=== PATIENT | male | born 1965 | race Caucasian/White ===

== ENCOUNTER 2024-08-04 07:53 | Emergency (ER) | payer OTHER ==
[2024-08-04] MEDS ORDERED: HYDROCODONE/APAP 5/325 MG TAB ONE (08:42)
--- NOTE | 2024-08-04 09:03 | RAD REPORT ---
Exam:Shoulder Right 2+ Views History: Right shoulder pain Findings: No fracture or dislocation seen Osteoporosis. Moderate osteoarthritis AC joint.
--- NOTE | 2024-08-04 10:03 | EDPHYS ---
Physician Documentation [facility] Name: Noman Huitron Age: 58 yrs Sex: Male : 1965 Arrival Date: 08/04/2024 Time: 07:53 Bed 11 Private MD: ED Physician Rudolph Thacker HPI: 08/04 10:17 This 58 yrs old Male presents to ER via Ambulatory with complaints of Shoulder Injury - ms3 right. 10:17 .Noman Huitron, a 58-year-old male, presents to the emergency department with ms3 right shoulder pain. He reports that the pain began after an incident while playing pickleball. Patient rates his discomfort a 9/10 states the pain is worse with movement. Patient describes the pain as being dull. He denies any alleviating factors. Historical: - Allergies: 08:00 No Known Allergies; ll1 - PMHx: 08:00 Diabetes mellitus; Hypertensive disorder; Hypercholesterolemia; ll1 - PSHx: 08:00 prostate surgery; ll1 - Immunization history:: Adult Immunizations up to date. - Infectious Disease History:: Denies. - Social history:: Smoking status: Patient denies any tobacco usage or history of. ROS: 10:17 Constitutional: Negative for fever, and chills. Cardiovascular: Negative for chest ms3 pain, and palpitations. Respiratory: Negative for shortness of breath, cough, wheezing, and pleuritic chest pain, Abdomen/GI: Negative for abdominal pain, nausea, vomiting, diarrhea, and constipation, 10:17 MS/extremity: Positive for pain, of the right shoulder, Exam: 10:17 Constitutional: This is a well developed, well nourished patient who is awake, alert, ms3 and in no acute distress. Cardiovascular: Regular rate and rhythm with a normal S1 and S2. No gallops, murmurs, or rubs. Normal PMI, no JVD. No pulse deficits. Respiratory: Lungs have equal breath sounds bilaterally, clear to auscultation and percussion. No rales, rhonchi or wheezes noted. No increased work of breathing, no retractions or nasal flaring. Abdomen/GI: Soft, non-tender, with normal bowel sounds. No distension or tympany. No guarding or rebound. No evidence of tenderness throughout. Skin: Warm, dry with normal turgor. Normal color with no rashes, no lesions, and no evidence of cellulitis. 10:17 Musculoskeletal/extremity: Extremities: noted in the right shoulder: pain, tenderness, ROM: limited active range of motion, right shoulder, Vital Signs: 08:08 BP 146 / 80; Pulse 53; Resp 17; Temp 98; Pulse Ox 100% ; Weight 77.11 kg; Height 5 ft. ll1 7 in. ; Pain 9/10; 10:19 Pain 5/10; jl7 08:08 Body Mass Index 26.63 (77.11 kg, 170.18 cm) ll1 08:08 Pain Scale: Adult ll1 10:19 Pain Scale: Adult jl7 MDM: 08:06 Medical Screening Exam initiated ms3 10:17 Differential diagnosis: Dislocation vs Strain/Sprain vs Fracture. Data reviewed: vital ms3 signs, nurses notes, radiologic studies, and as a result, I will discharge patient. I considered the following discharge prescriptions or medication management in the emergency department Medications were administered in the Emergency Department. See MAR. Counseling: I had a detailed discussion with the patient and/or guardian regarding the historical points, exam findings, and any diagnostic results supporting the discharge/admit diagnosis, the need for outpatient follow up, to return to the emergency department if symptoms worsen or persist or if there are any questions or concerns that arise at home. Special discussion: I discussed with the patient/guardian in detail that at this point there is no indication for admission to the hospital. It is understood, however, that if the symptoms persist or worsen the patient needs to return immediately for re-evaluation. ED course: Discussed radiology read showing moderate osteoarthritis of right shoulder with patient and his . Patient to follow-up with Dr. Fletcher in 2 to 3 days. Patient understands agrees with plan. All questions were answered. Return precautions discussed include worsening symptoms, or any other concerns. 08/04 08:07 Order name: Shoulder Right (2 View) XRAY; Complete Time: 09:06 ms3 Administered Medications: 08:40 Drug: HYDROcodone-acetaminophen PO 5 mg-325 mg 1 tabs PO once {Note: RASS 0, pain ll1 9/10.} Route: PO; 10:19 Follow up: Response: No adverse reaction; Pain is decreased jl7 Disposition Summary: 08/04/24 10:02 Discharge Ordered Notes: Location: Home ms3 Condition: Stable ms3 Diagnosis - Pain in right shoulder ms3 Followup: ms3 - With: Mitchell Fletcher MD - When: 2 - 3 days - Reason: Recheck today's complaints Discharge Instructions: - Discharge Summary Sheet ms3 - Shoulder Pain ms3 Forms: - Medication Reconciliation Form ms3 - Antibiotic Education ms3 - Prescription Opioid Use ms3 - Patient Portal Instructions ms3 - Leadership Thank You Letter ms3 Signatures: Dispatcher [employer] Karthikeyan Casanova RN RN ll1 Rudolph Thacker DO DO ms3 Nelson Solano RN jl7 Corrections: (The following items were deleted from the chart) 08:07 08:00 Allergies: No Known Allergies; ll1 ll1 : 08:00 PMHx: None; ll1 ll1 08: 08:00 PMHx: Headache; ll1 ll1 08: 08:00 PSHx: prostate; ll1 ll1
--- NOTE | 2024-08-04 10:03 | ER ---
Nurse's Notes [facility] Name: Noman Huitron Age: 58 yrs Sex: Male : 1965 Arrival Date: 08/04/2024 Time: 07:53 Bed 11 Private MD: Diagnosis: Pain in right shoulder Presentation: 08/04 08:08 Chief complaint: Patient states: Fell onto R shoulder yesterday playing pickle ball. ll1 Limited ROM and significant pain today. Coronavirus screen: Client denies travel out of the [place] in the last 14 days. At this time, the client does not indicate any symptoms associated with coronavirus-19. Ebola Screen: Patient denies travel to an Ebola-affected area in the 21 days before illness onset. Initial Sepsis Screen: Does the patient meet any 2 criteria? No. Patient's initial sepsis screen is negative. Does the patient have a suspected source of infection? No. Patient's initial sepsis screen is negative. Risk Assessment: Do you want to hurt yourself or someone else? Patient reports no desire to harm self or others. Onset of symptoms was August 03, 2024. 08:08 Method Of Arrival: Ambulatory ll1 08:08 Acuity: SRAVANI 3 ll1 Triage Assessment: 08:09 General: Appears uncomfortable, Behavior is calm, cooperative, appropriate for age. ll1 Pain: Complains of pain in R shoulder Pain currently is 9 out of 10 on a pain scale. Quality of pain is described as aching, Aggravated by increased activity. Musculoskeletal: Reports pain in R shoulder. Injury Description: fall onto R shoulder. Historical: - Allergies: 08:00 No Known Allergies; ll1 - PMHx: 08:00 Diabetes mellitus; Hypertensive disorder; Hypercholesterolemia; ll1 - PSHx: 08:00 prostate surgery; ll1 - Immunization history:: Adult Immunizations up to date. - Infectious Disease History:: Denies. - Social history:: Smoking status: Patient denies any tobacco usage or history of. Screenin:19 [facility] ED Fall Risk Assessment (Adult) History of falling in the last 3 months, bp including since admission No falls in past 3 months (0 pts) Confusion or Disorientation No (0 pts) Intoxicated or Sedated No (0 pts) Impaired Gait No (0 pts) Mobility Assist Device Used No (0 pt) Altered Elimination No (0 pt) Score/Fall Risk Level 0 - 2 = Low Risk. Abuse screen: Denies threats or abuse. Denies injuries from another. Nutritional screening: No deficits noted. Tuberculosis screening: No symptoms or risk factors identified. Assessment: 08:10 General: Appears in no apparent distress. uncomfortable, Behavior is calm, cooperative, bp appropriate for age. Vital Signs: 08:08 BP 146 / 80; Pulse 53; Resp 17; Temp 98; Pulse Ox 100% ; Weight 77.11 kg; Height 5 ft. ll1 7 in. ; Pain 9/10; 10:19 Pain 5/10; jl7 08:08 Body Mass Index 26.63 (77.11 kg, 170.18 cm) ll1 08:08 Pain Scale: Adult ll1 10:19 Pain Scale: Adult jl7 ED Course: 07:56 Patient arrived in ED. im 07:59 Arm band placed on Patient placed in an exam room, on a stretcher. ll1 08:06 Yesi Ambrose, MELISSA is Primary Nurse. ko1 08:06 Rudolph Thacker DO is Attending Physician. ms3 08:09 Triage completed. ll1 08:19 Patient has correct armband on for positive identification. bp 08:57 Shoulder Right (2 View) XRAY In Process Unspecified. EDMS 10:02 Mitchell Fletcher MD is Referral Physician. ms3 10:18 No provider procedures requiring assistance completed. Patient did not have IV access hb during this emergency room visit. 10:19 Provided Education on: follow up. hb Administered Medications: 08:40 Drug: HYDROcodone-acetaminophen PO 5 mg-325 mg 1 tabs PO once {Note: RASS 0, pain ll1 9/10.} Route: PO; 10:19 Follow up: Response: No adverse reaction; Pain is decreased jl7 Medication: 10:19 VIS not applicable for this client. hb Outcome: 10:02 Discharge ordered by . ms3 10:18 Discharged to home ambulatory, hb 10:18 Condition: stable 10:18 Discharge instructions given to patient, Instructed on discharge instructions, follow up and referral plans. medication usage, Demonstrated understanding of instructions, follow-up care, medications, Prescriptions given X 1, 10:19 Patient left the ED. hb Signatures: Dispatcher [facility] EDOR Angeline Mead RN RN Nelson Solano RN RN jl7 Stefano Cleary RN RN bp Karthikeyan Clements RN RN ll1 Rudolph Thacker DO DO ms3 Yesi Ambrose RN RN ko1 Aparna Mak Corrections: (The following items were deleted from the chart) 08:00 Allergies: No Known Allergies; ll1 ll1 08:00 PMHx: None; ll1 ll1 08:00 PMHx: Headache; ll1 ll1 08:00 PSHx: prostate; ll1 ll1
[2024-08-04 10:25] VITALS: BP 146/80; TEMP 98; O2SAT 100
== END 2024-08-04 10:19 | disposition home or self-care (01) ==
LOC: ER 07:53
DX: M25.511 Pain in right shoulder (principal)
CPT/HCPCS: 99283